=== PATIENT | male | born 1970 | race Caucasian/White ===

== ENCOUNTER 2018-09-13 14:42 | Emergency (ER) | payer OTHER ==
[~2018-09-13] VITALS: Ht 170.2 cm; Wt 88.5 kg
[2018-09-13 14:49] VITALS: Ht 170.2 cm; Wt 88.5 kg
[2018-09-13 19:17] VITALS: BP 136/78
== END 2018-09-13 19:17 | disposition home or self-care (01) ==
LOC: ED 14:42
DX: S39.012A Strain of muscle, fascia and tendon of lower back, initial encounter (principal); X58.XXXA Exposure to other specified factors, initial encounter; Y93.89 Activity, other specified; Y92.89 Other specified places as the place of occurrence of the external cause; Y99.8 Other external cause status
CPT/HCPCS: J1885; J3010; Q0162